=== PATIENT | male | born 1995 | race Caucasian/White ===

== ENCOUNTER → 2018-12-10 | Outpatient (CLI) | payer OTHER ==
--- NOTE | 2018-12-10 14:00 | REP ---
TRIPLE PHASE BONE SCAN, LOWER LEGS: Following the intravenous administration of 21.3 millicuries technetium 99m MDP, patient's lower legs are imaged in the flow phase in the anterior and posterior projections showing symmetrical blood flow. Immediate blood pole images are performed in various projection showing no significant abnormal blood pooling. Delayed images are performed two hours post injection in various projections showing bilateral linear uptake along the tibial cortex bilaterally compatible with stress periostitis or jung splints. No stress fracture is seen. Electronically Signed by Taz Barnes MD 12/12/2018 10:14 A
== END ==
LOC: M RAD 10:12
PROVIDERS: ATTEND Physician Assistant
DX: R93.89 Abnormal findings on diagnostic imaging of other specified body structures (principal); M79.604 Pain in right leg; M79.605 Pain in left leg
CPT/HCPCS: 78315; A9503